=== PATIENT | male | born 1970 | race Caucasian/White ===

== ENCOUNTER 2017-10-24 19:53 | Emergency (ER) | payer OTHER ==
[2017-10-24] MEDS: FAMOTIDINE 20 MG TAB PO (22:13)
== END 2017-10-24 22:43 | disposition home or self-care (01) ==
LOC: E/R 19:53
DX: F32.9 Major depressive disorder, single episode, unspecified (principal); R42 Dizziness and giddiness
CPT/HCPCS: 93005; 99284-25

== ENCOUNTER 2017-11-25 15:21 | Emergency (ER) | payer OTHER | END 2017-11-25 18:44 | disposition home or self-care (01) | LOC: FTE 15:21 | DX: F32.9 Major depressive disorder, single episode, unspecified (principal); Z76.0 Encounter for issue of repeat prescription | CPT/HCPCS: 99282; Z7502 ==